=== PATIENT | male | born 2000 | race Asian ===

== ENCOUNTER 2023-04-27 23:45 | Emergency (ER) | payer OTHER ==
[~2023-04-27] VITALS: Ht 175.3 cm; Wt 114.8 kg
== END 2023-04-28 00:58 | disposition home or self-care (01) ==
LOC: ED 23:45
DX: S81.852A Open bite, left lower leg, initial encounter (principal); S80.812A Abrasion, left lower leg, initial encounter; W54.0XXA Bitten by dog, initial encounter
CPT/HCPCS: 90471; 90715; 99282